=== PATIENT | female | born 1945 | race Caucasian/White ===

== ENCOUNTER → 2019-10-05 12:49 | Outpatient (CLI) | payer OTHER, SELFPAY ==
--- NOTE | 2019-10-05 | DI.MRI.S_ITS ---
PROCEDURE: MR KNEE RT WO CON INDICATIONS: Pain in right knee TECHNIQUE: Noncontrast sagittal PD fast spin echo and T2 fast spin echo with fat saturation, sagittal 3-D FLASH with fat saturation; coronal T1 spin echo and PD fast spin echo with fat saturation, and axial PD fast spin echo with fat saturation through the knee. COMPARISON: [facility] [place], CR, XR KNEE ARTHRITIC SERIES BI, 09/25/2019, 16:21. FINDINGS: Image quality: Excellent. Menisci: Ill-defined tear involving the anterior horn and body of the medial meniscus with partial extrusion. Circumferential macerated tear of lateral meniscus with near complete extrusion of the body. Cruciate ligaments: Anterior cruciate ligament not well visualized although some intact fibers are noted for example image 25/8. This suggests indeterminate partial rupture/chronic sprain Posterior cruciate ligament appears intact. Medial structures: There is medial bowing of the medial collateral ligament, with mild internal signal changes and no complete rupture. There is adjacent soft tissue edema. The appearance could reflect reactive changes to medial compartment pathology, versus low-grade sprain of the MCL. Pes anserinus tendons appear grossly unremarkable. Semimembranosus tendon appears intact. Lateral structures: The lateral collateral ligament demonstrates thickening and intrasubstance signal change in keeping with low grade sprain, statistically chronic, although technically age indeterminate. Biceps femoris tendon appears intact. Popliteus tendon grossly unremarkable. Iliotibial band appears intact. Anterior structures: Quadriceps tendon intact. Medial and lateral patellofemoral ligaments intact. There is mild patellar tendinopathy. Prepatellar and superficial infrapatellar subcutaneous edema/fluid. There is also fluid seen in the deep infrapatellar recess Bones and cartilage: No focal marrow contusion or discrete low signal fracture line. Within the medial compartment, the diffuse partial-thickness loss and surface rendering, as well as intrasubstance signal change involving the tibial and femoral cartilage. Within the lateral compartment, full-thickness denudation of the femoral and tibial articular cartilage Within the patellofemoral compartment, diffuse near full-thickness loss of the patellar cartilage. There is also diffuse surface fraying and partial-thickness loss of the femoral trochlea cartilage Joint space: Large joint effusion is present. Trace Swan's cyst. Possible 4 mm loose body on image 96/10, image 18/9 although technically indeterminate. There is diffuse presumed reactive synovitis IMPRESSION: Circumferential macerated tear lateral meniscus Ill-defined medial meniscal tear involving the anterior horn and body Probably chronic low-grade sprain/partial rupture of the anterior cruciate ligament Severe degenerative joint disease most pronounced in the lateral and patellofemoral compartments as above Large joint effusion, with diffuse reactive synovitis Possible small loose body as above Trace Swan's cyst Patellar tendinopathy Dictated by: Geovani Gomez M.D. on 10/07/2019 at 8:28 Approved by: Geovani Gomez M.D. on 10/07/2019 at 8:36
== END ==
PROVIDERS: Visit Provider Orthopaedic Surgery
DX: M25.561 Pain in right knee (principal); S83.281A Other tear of lateral meniscus, current injury, right knee, initial encounter; S83.241A Other tear of medial meniscus, current injury, right knee, initial encounter; M17.11 Unilateral primary osteoarthritis, right knee; M65.861 Other synovitis and tenosynovitis, right lower leg; M25.461 Effusion, right knee
CPT/HCPCS: 73721

== ENCOUNTER 2019-12-03 10:49 | Day surgery (SDC) | payer OTHER, SELFPAY ==
[2019-11-25 12:29] VITALS: BMI 33.1
[2019-12-03] VITALS (10 sets, daily range): BP systolic 117–144; BP diastolic 63–86; PULSE 47–68; RESP 12–19; TEMP 36.2–37.2; O2SAT 93–98; BMI 33.3
--- NOTE | 2019-12-03 06:00 | DI.RAD.S_ITS ---
PROCEDURE: XR KNEE RT 1TO2V INDICATIONS: post op TECHNIQUE: 2 view(s) of the knee acquired. COMPARISON: None. FINDINGS: Bones: Patient is status post knee joint arthroplasty. Hardware components are in expected positions. Visualized bony structures are intact. Soft tissues: Overlying postoperative changes are noted. IMPRESSION: Normal alignment after right total knee arthroplasty. Dictated by: Amari Cisneros M.D. on 12/04/2019 at 11:57 Approved by: Amari Cisneros M.D. on 12/04/2019 at 11:57
[2019-12-03] MEDS: PREGABALIN 75 MG CAPSULE PO (12:02)
[2019-12-03] MEDS: ACETAMINOPHEN 325 MG TABLET 975 MG PO (12:02)
[2019-12-03] MEDS: CELECOXIB 200 MG CAPSULE PO (12:02)
[2019-12-03] MEDS: VANCOMYCIN 1,000 MG/200 ML PIGGYBACK 200 MG IV (14:01)
[2019-12-03] MEDS: LACTATED RINGERS 1,000 ML 120 ML IV ×2 (14:20→16:42)
--- NOTE | 2019-12-03 14:24 | PM.PREOP ---
Pre-operative Note Interval Note History & Physical reviewed/Exam performed by Physician: Yes Changes to H&P: No
--- NOTE | 2019-12-03 14:24 | PM.OP.1 ---
Operative Date/Time/Diagnoses Date of procedure: 12/03/19 Time of procedure: 14:56 Pre-op diagnosis: Right knee OA Post-op diagnosis: same Procedure & Clinicians Procedure: Right total knee arthroplasty Same procedure as scheduled: Yes Indications: The patient has had progressively worsening right knee pain with radiographic changes consistent with arthritis. Non-operative management has failed and the patient has requested total knee replacement. The risks, benefits and alternatives to surgery were discussed with the patient prior to proceeding. Risks discussed included, but were not limited to, failure to relieve pain, stiffness, infection, nerve damage, deep venous thrombosis, pulmonary embolism, stroke, coma, heart attack, permanent paralysis and , as well as the potential need for eventual revision of the prosthetic. Surgeon: Enid Briceño Lace Pinner: Marija Combs Anesthesia Type: Spinal Operative Notes Findings: Severe right knee osteoarthritis the tight lateral compartment, good stability acceptable alignment, soft bone Closure Type: primary Specimen(s): none sent Prosthetic devices, grafts, tissues, transplants, or devices: Briceño and Nephew Journey BCS 2 size 4 femur, size 4 tibia, +9 poly, 35 by 7.5 mm patella Applied: drain(s) Estimated Blood Loss (mL): 250 Blood products transfused: none Tourniquet time (min): 93 Procedure in detail: The patient was seen in the pre-operative area, where the patient identified the right knee as the operative site and this was marked with my initials. The patient received pre-operative antibiotics, and was taken to the operating room and placed on the operative table in the supine position. After satisfactory anesthesia, a multimedia instructional designer out? was performed. The right leg was encircled with a tourniquet about the proximal thigh, and the leg was prepared from the toes to the tourniquet with ChloroPrep in the usual fashion and draped through sterile drapes. The leg was elevated and exsanguinated with Eschmark bandage and the tourniquet inflated to [250] mmHg pressure. The knee was approached through an approximately 18 cm incision centered over the patella and carried into the knee through a medial parapatellar arthrotomy. Portion of the medial and lateral meniscus was resected. Soft tissue was carefully mobilized around the patella the patella was measured with a caliper. Bone was resected from the patella and the patellar height was reconstituted with up an appropriate sized patellar component. For a cover was then placed on the patella. A small amount of additional medial and lateral meniscus was resected. The visionary guide fit well to the distal femur. It looked like an appropriate distal femoral cut and the cut was made without difficulty. The rotation was assessed and the appropriate size femoral guide was placed on the distal femur and finishing cuts were made. There is no evidence of notching. The anterior, posterior and chamfer cuts were then made. The posterior osteophytes and soft tissues were then removed. The posterior capsule was injected with part of a mixture of 60 ml 0.25% Marcaine mixed with 20 ml Exparel for post operative pain control. The remainder of this mixture was injected into the capsule and subcutaneous tissues during cement curing. The tibia was prepared and the visionaire guide fit well to the distal tibia. The rotation was assessed. The patient was placed in extension residual medial and lateral meniscus as well as any residual bone was carefully resected. 2 mm additional tibia was resected. Hemostasis was achieved especially posteriorly. Additional local was injected into the posterior capsule. The extension gap was assessed and additional releases for gap balancing were performed as necessary. It was checked with the gap marking machine tender. The femoral component was trial was placed and the notch was finished. Trial tibial and femoral components were then placed and the knee placed through a range of motion. Range of motion was [0-130], with good stability throughout the range. The trials were then removed, and the tibia was finished. The bone was prepared with pulsatile lavage, and dried with a sponge. Cement was applied and the final prosthetics placed. Excess cement was removed during and after cement curing. A brief Betadine soak was performed. After confirming there was no extruded cement posteriorly, the final tibial insert was placed. The knee was copiously irrigated and the tourniquet deflated. Hemostasis was obtained with the Bovie. A drain was placed and brought out superolaterally. The capsule was closed with interrupted Vicryl suture. The subcutaneous layer was closed with barbed sutures, and the skin with a running 3-0 V-Lock suture and Surgical glue. An Aquacel Ag dressing was applied and the patient was taken to recovery having tolerated the procedure well. Complications: none Post-operative Condition: stable Disposition: Acute Care Plan for aftercare: The patient will be maintained on a standard total knee replacement protocol with weight bearing as tolerated. The patient will receive aspirin and sequential compression devices for DVT prophylaxis. The patient will be discharged home when safe for the home environment.
[2019-12-03] MEDS: CEFAZOLIN 2 GM/100 ML FROZ.PIGGY IV (14:58)
[2019-12-03] MEDS: TRANEXAMIC ACID 1,000 MG VIAL 1000 MG INJ ×2 (15:15→16:58)
--- NOTE | 2019-12-03 15:33 | SUR.OPER ---
Supine on padded OR bed. Pillow under head, arms secured on padded armboards <90 degree abduction. Safety belt across torso. Non-operative leg secured with tape over blanket over lower leg. Operative leg secured in DeMayo/Brendon positioner. Foam padded brace at thigh of operative leg.
[2019-12-03] MEDS: BUPIVACAINE 0.25% W/ EPI (PF) 10 ML VIAL 60 ML INJ (15:43)
[2019-12-03] MEDS: SODIUM CHLORIDE IRRIG SOLUTION 250 ML, POVIDONE-IODINE SPONGE STICKS 1 APPLIC IRR ×2 (15:43→16:02)
[2019-12-03] MEDS: BUPIVACAINE LIPOSOME 266 MG/20 ML VIAL INJ (15:43)
--- NOTE | 2019-12-03 16:43 | SUR.OPER ---
Pt. has psoriasis on her back, buttocks, abdomen; red dry scaly patches observed during positioning and prep. One spot noticed on operative site - right knee.
--- NOTE | 2019-12-03 18:04 | SUR.PHASEII ---
Patient A/O x 4. SAUCEDO'S x 4. Denies pain & nausea.
[2019-12-03] MEDS: LACTATED RINGERS 1,000 ML 125 ML IV (20:19)
[2019-12-03] MEDS: ACETAMINOPHEN 325 MG TABLET 650 MG PO (20:23)
[2019-12-03] MEDS: ASPIRIN EC 81 MG TABLET PO (20:24)
[2019-12-03] MEDS: IBUPROFEN 400 MG TABLET PO (20:25)
--- NOTE | 2019-12-03 23:36 | PC.NURSE ---
Post-op note: Cristhian was brought to rm 216 at 1830, awake, oriented x 3 and situation. Denied pain, reporting legs numb, able to wiggle toes, ankle wave & feel nurse hand on feet & legs. Rates some sensation and rated R knee pain at 1 or 2, scheduled tylenol & ibuprofen given as ordered. Pedal pulses are strong, SCD's on bilaterally. Aquacel & mckay wrap drsgs are CDI, hemovac came clamped. At 1930 I unclamped drain (per AIRCRAFT WORKER's order) drain is active w/sero-sang drainage, disc compressed. VS remain stable. RA oxygen mid-to-high 90's with continuous pulse ox monitoring. Lungs clear throughout; deep breathing instructed. Tolerating regular diet. No void as of 2199, TERRA COTTA MASON in room to bladder scan, the highest amt was 30 ml. Pt then voided 200 ml via bedpan. Fall precautions in place, alarm active for safety.
[2019-12-04] MEDS: CEFAZOLIN 2 GM/100 ML FROZ.PIGGY IV ×2 (00:16→06:27)
[2019-12-04] MEDS: IBUPROFEN 400 MG TABLET PO ×3 (00:53→09:57)
[2019-12-04 01:30] VITALS: BP 137/61; PULSE 71; RESP 16; TEMP 36.8; O2SAT 95
[2019-12-04] MEDS: LACTATED RINGERS 1,000 ML 125 ML IV (04:50)
[2019-12-04] MEDS: LEVOTHYROXINE 75 MCG TABLET PO (04:51)
[2019-12-04 05:01] VITALS: BP 122/62; PULSE 67; RESP 16; TEMP 37.1; O2SAT 95
[2019-12-04 07:19] LABS: Hemoglobin 12.2 g/dL (12.0-16.0)
[2019-12-04 07:30] VITALS: BP 136/74; PULSE 58; RESP 16; TEMP 36.8; O2SAT 96
--- NOTE | 2019-12-04 07:56 | PM.PN.1 ---
Subjective Subjective Date Patient Seen: 12/04/19 Time Patient Seen: 07:56 Interval history: Patient is POD# 1 s/p left TKA. Pain is mild and well controlled with Tylenol and Ibuprofen. She has mobilized about the room but is pending PT. Voiding appropriately. She denies any chest pain, shortness of breath, nausea or vomiting. Exam Vital Signs (past 8 hours): - 12/04/19 01:30 12/04/19 05:01 Temperature 98.3 F 98.7 F Pulse Rate 71 67 Respiratory Rate 16 16 Blood Pressure 137/61 122/62 Pulse Oximetry 95 95 Oxygen Delivery Method Room Air Oxygen Flow Rate 0 Narrative Exam Narrative: Pleasant 74 year old female resting in bed, alert and oriented in no acute distress. Aquacel is CDI. Patient able to flex and extend the hip and ankle. Calves soft and compressible. Objective Labs Result Diagrams: 12/04/19 06:55 Labs: Laboratory Results - last 24 hr 12/04/19 06:55 Hgb 12.2 Hct 36.0 Assessment & Plan Assessment & Plan narrative: Patient is progressing well postoperatively. Continue to mobilize, work with PT today. Discontinue hemovac drain prior to discharge. Discharge to home later today pending PT.
[2019-12-04] MEDS: ACETAMINOPHEN 325 MG TABLET 650 MG PO (09:55)
[2019-12-04] MEDS: CHOLECALCIFEROL (VITAMIN D3) 1,000 UNIT TABLET 2000 UNIT PO (09:56)
[2019-12-04] MEDS: ASPIRIN EC 81 MG TABLET PO (09:56)
[2019-12-04] MEDS: DOCUSATE 100 MG CAPSULE PO (09:56)
[2019-12-04] MEDS: hydroCHLOROthiazide 25 MG TABLET 12.5 MG PO (09:57)
--- NOTE | 2019-12-04 10:29 | CM.DANOTE ---
Patient is a 74 year old female who was admitted on 12/03/19 for RTKA. Pt has [facility] for insurance and her PCP is Dr. Estuardo Zamorano. EMR was reviewed. Per Ashwini CARDENAS and PA, pt medically stable to d/c home today after further PT. Per PT, recommending safe d/c home with friend assist and outpt PT and will work one more time with pt this afternoon prior to d/c. SW met bedside with pt and explained role and pt confirms that she lives alone in a condo in [place] and is independent with ADL's at baseline and drives. Pt denies any hx of HH or SNF and states her Dtr Daylin who lives in [place] is her DPOA. Pt denies any other local family but states she has a few close supportive friends who can assist at d/c and her friend Daylin, who lives in her condo complex below the pt, plans to provide transport this afternoon maybe around 1500 home and will stay the night with the pt for assist if needed. Pt states she would like to work with PT again after lunch prior to d/c as she had slight nausea after ambulation this morning with PT. Pt does not anticipate any SW needs at d/c and preference is home with friend this afternoon. Plan: SW to follow for likely pt d/c home this afternoon via friend Jennifer's POV and outpt PT. No SW needs at this time. MELISSA Patricio Discharge Planning/Care Management CM Discharge Assessment Start: 12/04/19 10:28 Freq: Status: Active Protocol: Document 12/04/19 10:28 (Rec: 12/04/19 10:29 [id number]) Discharge Planning Assessment Assigned Die Maker Bench Stamping NIKIA Garza DPBOBBI/Assigned Designee Name Dtr Daylin Perales Contact Information [phone] Advance Directives? Yes Advance Directives on File No History Provided By Patient,Medical Record Has Patient been admitted in last 30 No days? Prior Living Arrangements Apartment/Condo Household Members none Type of transporation used prior to Drives own vehicle admit Independent with ADL's Yes Is patient alert and oriented? Yes Caregiver for Another No Community Services used prior to Physical Therapy admission: Patient/Family Preference OP PT Therapy Barriers to Discharge No Discharge Plan Home Community Services Physical Therapy Transportation Arrangement Friend Jennifer to provide transport home and stay with pt overnight Referrals Initiated None needed Whiteboard Updated in Patient Room with Yes name and ext. # of Die Maker Bench Stamping Review Status In Process Please Provide Date Initial DC 12/04/19 Assessment Was Performed Next Review Type Continued Stay Review Pre-Anesthesia Assessment Start: 11/25/19 12:29 Freq: Status: Active Protocol: Document 11/25/19 12:29 CAB (Rec: 11/25/19 13:32 CAB [id number]) Pre-Anesthesia Assessment PAC Comment Retired pharmacist Preferred Name Juanita Patient Information Reviewed Via Phone Assessment Assessment Completed With Patient Comment Labs/EKG done per pt, surgeon has them-not available at time of assess Primary Care Provider Estuardo Good Seen Specialist in Last 12 Months Yes Specialist Seen Opthamologist/Skip Load Driver, Orthopedist Primary Language Senegalese Data Center Manager Required No Height 160.02 cm Weight 84.822 kg Body Mass Index (BMI) 33.1 Hearing Ability Normal Visual Assist Glasses Dentition Type Teeth, Natural Present,Teeth, Missing Barriers to Learning None Hx Anesthesia Reactions Yes: Hard time of coming to, very nausea, dizziness for almost a week 1972 Hx Family Anesthesia Reaction No Hx Malignant Hyperthermia No Hx Blood Transfusions No Anesthesia Review Requested No alcohol intake never Smoking Status Never smoker Substance Use Type does not use Pain Present Pain Reported Musculoskeletal Symptoms Abnormal Gait,Difficulty Walking,Joint Pain,Muscle Cramps,Muscle Spasms,Muscle Weakness History of Falling (Recent or History of No ) Patient is completely paralyzed or No completely immobile Mental Status Oriented to own ability Is patient on oxygen? No Does patient have CAMPBELL/SOB No Hx Sleep Apnea No Currently Taking a Beta Mikaela No Can You Climb a Flight of Stairs Without Yes SOB Hx Chest Pain No Hx SOB No Hx Syncope or Dizziness No Anti-Coagulant Therapy No Has a County Treasurer No Cardiac Testing No Hx Pacemaker/ICD No Pacemaker Rep Required? No Cardiac Clearance Received Not Applicable Diet Type At Home Regular dysphagia No Urinary Catheter Present No Hx Urinary Self Catheterization No Diabetes No Patient No Lactating No Hx Drug Resistant Organism No Presence of External or Internal Medical Yes: Bilateral eye lens Devices Have you traveled outside the [facility] in the last 30 days? Marital Status / Lives With none Prior Living Arrangements Apartment/Condo Number of Floors (Floors) One Floor Support System Friend(s) Does the Patient Have Assistance After Yes Surgery Patient Discharge Plan Description Return Home Comment Pt advised next day length of stay per surgeon Feels Safe in Current Environment Yes Been Physically Hurt or Threatened By a No Person in Current Environment Do you have thoughts of harming yourself None or others? Are you currently considering suicide? No Do you have a plan to hurt yourself or No Plan others? Do You Have Any Spiritual Beliefs That No May Affect Your HC Choices? Do You Have Any Cultural Practices That No May Affect Your HC Choices? Comment Synagogue Who Can We Speak to About Patient's Care Family, friends Identifying Code for Release of Patient Declines to issue Information Health Care Proxy/Next of Kin Cheryl (daughter) Health Care Proxy Emergency Contact Name Jennifer (friend) Emergency Contact or [phone] Advance Directives? Yes Advance Directives on File No Requested Patient Bring Advanced Yes Directives DOS Power of Flight Coordinator Yes Power of Flight Coordinator Name Cheryl (daughter) Power of Flight Coordinator PAC Instructions Do not shave/clip surgical site,Durable medical equipment ,Medications to take/avoid, Nasal antibiotic,No ETOH/ petroleum product on skin DOS, Post-op transportation,Pre-op antibiotic,Sturdy shoes/ comfortable clothes,Do not bring valuables and remove jewelry
--- NOTE | 2019-12-04 10:49 | PT.IIE ---
Current Diagnoses Unilateral primary osteoarthritis, right knee (12/03/19) Surgery Performed Operation Date: 12/03/19 13:15 Actual Procedures p Total Knee Arthroplasty(Right) - Enid Briceño MD Surgical History (Last Updated 11/25/19 @ 13:16 by Jennifer Wilson RN) History of bilateral cataract extraction (Acute) History of colonoscopy (Acute) History of hysterectomy (Acute) Hx of arthroscopy of left knee (Acute) Medical History (Last Updated 11/25/19 @ 13:12 by Jennifer Wilson RN) Fragile skin (Acute) Gout (Acute ~10/2018) HTN (hypertension) (Acute) Hypothyroidism (Acute) Osteoarthritis (Acute) Psoriasis (Acute) Physical Therapy Inpatient Evaluation/Re-Eval M1 PT/OT-IP Prior Functional Status Start: 12/04/19 08:17 Freq: NEEDED Status: Active Protocol: Document 12/04/19 08:57 HH (Rec: 12/04/19 10:49 [email or web address]) Medical Review Prior Functional Status Medical History Reviewed Yes Diet/Fluid Consistency Regular Communication no deficits noted. able to make needs known Mobility and Gait independent for all mobility without using AD. Stated had difficulty to bend and straighten his R knee d/t pain , and primarily WB through his L LE for many years. She also has trouble getting up from low chair and climbing stairs with step to pattern Activities of Daily Living and IADL's independent with ADLs and IADLs without AD but increased time depends on her pain level. She is able to drive. Social History Household Members none Living Arrangements Apartment/Condo Number of Floors (Floors) One Floor Number of Stairs To Enter/Railing? no [employer] has elevator access from garage to condo. Home Environment High Toilet,Walk in Shower Home Equipment Front Wheel Walker,Straight Cane,Bedside Commode,Raised Toilet Seat w/Armrests,Shower Seat with Backrest Employment Status Retired Additional Social History Comment Pt lives alone in [facility] and has a good friend Jennifer / caodaism friends that could assist as needed anytime. Pt has childrens live in [place]/ [place] / [place] but she stated she doesnt believe she will need their help. Pt will partipate outpatient therapy at [facility]. M2 PT-IP Current Condition Start: 12/04/19 08:17 Freq: NEEDED Status: Active Protocol: Document 12/04/19 08:57 (Rec: 12/04/19 10:49 [email or web address]) Physical Therapy Current Condition Current Condition Evaluation Date 12/04/19 Treatment Diagnosis R TKA, difficulty in walking Onset Date 12/03/19 Weight Bearing Status Weight Bearing Status Weight Bear as Tolerated M3 PT-IP Subjective Start: 12/04/19 08:17 Freq: NEEDED Status: Active Protocol: Document 12/04/19 08:57 (Rec: 12/04/19 10:49 [email or web address]) Subjective Physical Therapy Visit Type Type Initial Evaluation Visit Start Time 08:57 Visit Stop Time 09:26 Total Visit Minutes 29 Number of LAVATORY ATTENDANT Visits 0 Physical Therapy Visit Comments Patient Comments I dont have any pain sitting up. Patient Goals to return home once she is medically ready. Therapy Pain Assessment Pain When Pain Assessed During Mobility Pain Present Pain Present Pain Reported Location Right Hip Intensity 3 Scale Used Numeric (1 - 10) Description Aching Pain Management Techniques Apply Cold,Timing of Activity with Medications M4 PT-IP Mobility and Gait Start: 12/04/19 08:17 Freq: NEEDED Status: Active Protocol: Document 12/04/19 08:57 HH (Rec: 12/04/19 10:49 [email or web address]) PT-Transfer Assessment Sit to and From Stand Sit to and from Stand Contact Guard Assistance,Use of Upper Extremities Equipment Transfer Assistive Device Gait Belt,Front Wheeled Walker Orthotic/Prosthetic Devices or Brace: No Transfers Transfer Destination Chair Transfer Technique Stand Step Pivot Transfer Ability Level of Assist Contact Guard Assistance,Use of Upper Extremities Comments Mobility Comments Pt was sitting up in chair upon PT arrival. Denied any discomfort or pain. BP at 136/ 70 HR 55. Pt agreed to mobilize with PT. Pt did 5mins of seated heel slide with towel underneath and was able to reach 90-95 degrees of knee flexion. She then completed sit to stand slowly by using staggered and UE pushed off from armrests. She practiced standing weight shift and R TKE with FWW for a minute. She then proceed to amb in hallway with FWW CGA. Pt initially amb with step to pattern and c/o nauseous after 30 ft and needed a standing rest break x 3 minutes but did not vomit. She cont to amb for another 40 ft then returned to room with improved step over pattern but slowly. Pt was able to facilitate heel toe pattern on RLE without much discomfort. She then returned to chair with safe transfer and staggered stance. Call light placed within reach and educated pt to practice seated heel slide. Gait Assessment Gait Gait Assistance Required: Contact Guard Assist Distance (Feet) 150 Able to Maintain Weight Bearing Status Yes During Gait Assistive Devices Assistive Device Gait Belt,Front Wheeled Walker Orthotic/Prosthetic Devices or Brace: No Gait Deviations General Gait Pattern Decreased Stride Length, Decreased Feet Clearance, Flexed Trunk,Step-to Gait Factors Limiting Gait Function Factors Limiting Gait Function Decreased Activity Tolerance, Decreased Strength,Limited Range of Motion,Pain,Poor Balance Comments Gait Comments see mobility comments Stair Climbing Assessment Comments Stair Climbing Comments did not assess d/t limited mobility PT-Balance Assessment Sitting Balance and Reactions Static Sitting Balance Ability Normal Dynamic Sitting Balance Ability Normal Standing Balance and Reactions Static Standing Balance Ability Normal Dynamic Standing Balance Ability Good Device Used FWW M5 PT-IP Objective Assessments Start: 12/04/19 08:17 Freq: NEEDED Status: Active Protocol: Document 12/04/19 08:57 (Rec: 12/04/19 10:49 [email or web address]) Orientation Orientation/Cognition Level of Alertness Alert Orientation Name,Age,Birthday,Month,Date, Year,Day of Week,Place, Situation Language Function Ability No Deficits Noted Safety Awareness Understands Safety Issues Memory Description No Deficits Noted Gross Range of Motion Upper Extremity ROM Assessment Within Functional Limits Lower Extremity ROM Assessment Right Impaired Impairments knee AROM 8- 90/95 degrees Strength Upper Extremity Strength Assessment Within Functional Limits Lower Extremity Strength Assessment Right Impaired Knee 3+/5 Sensation Assessment Sensation Gross Sensation WNL Light Touch Intact Proprioception (Position) Intact Muscle Tone Muscle Tone WNL Yes M6 PT-IP Treatment Start: 12/04/19 08:17 Freq: NEEDED Status: Active Protocol: Document 12/04/19 08:57 (Rec: 12/04/19 10:49 [email or web address]) Physical Therapy Treatment Exercises Exercises Ankle Pumps,Quad Sets,Heel Slides Education Education Provided Precautions,Weight Bearing Status,Post-Op Packet,Safety Other Treatments Other Treatment Performed Assisted pt to reverse her front wheels to place her wheels on the lateral side. M7 PT-IP Assessment and Plan Start: 12/04/19 08:17 Freq: NEEDED Status: Active Protocol: Document 12/04/19 08:57 (Rec: 12/04/19 10:49 [email or web address]) PT Summary Assessment and Plan Potential Rehabilitation Potential Excellent Status of Condition at Evaluation Stable Summary Impairments Pain,ROM,Strength,Balance,Bed Mobility,Transfers,Gait, Activity Tolerance Assessment Summary This is a low complexity evaluation for this 74 yo female POD 2 R TKA. PLOF: Pt lives alone with good mobility without using AD but did need increased time for sit to stand and stair climbing activities. CLOF: Pt was able to amb / transfer with CGA and FWW. Pt initially amb with step to gait slowly but able to progress to step over heel toe gait at the end. She did has an episode of feeling nauseous but subside after 3 mins. Since pt lives alone, pt will need 2nd treatment this afternoon to ensure her endurance and mobility are sufficient without discomfort prior to d/c home with friend' s Jennifer assistance, along with outpatient PT. Goals Bed Mobility Goal Standby Assistance Transfer Goal Standby Assistance,Front Wheeled Walker Gait Goal Standby Assistance,Front Wheel Walker Gait Distance 200 Days to Meet Goals 2 Frequency of Treatment Frequency Of Treatment Twice a Day Treatment Plan Physical Therapy Treatment Plan Bed Mobility Training,Transfer Training,Gait Training, Therapeutic Exercise,Balance Retraining,Post Op Education, Discharge Planning,Hot or Cold Pack,Neuromuscular Re-ed Other Recommendations and Next Treatment check VSS Focus gait training with step over and heel toe sit to stand with even weightbearing. Recommendations To Nursing Amount of Assist Needed Standby Assistance Discharge Recommendations PT Discharge Recommendations Home with Assistance, Outpatient PT Transportation Needs at Discharge Private Vehicle
--- NOTE | 2019-12-04 14:07 | PT.IPTN ---
Current Diagnoses Unilateral primary osteoarthritis, right knee (12/03/19) Surgery Performed Operation Date: 12/03/19 13:15 Actual Procedures p Total Knee Arthroplasty(Right) - Enid Briceño MD Physical Therapy Treatment Note M2 PT-IP Current Condition Start: 12/04/19 08:17 Freq: NEEDED Status: Active Protocol: Document 12/04/19 08:57 HH (Rec: 12/04/19 10:49 HH [email or web address]) Physical Therapy Current Condition Current Condition Evaluation Date 12/04/19 Treatment Diagnosis R TKA, difficulty in walking Onset Date 12/03/19 Weight Bearing Status Weight Bearing Status Weight Bear as Tolerated M3 PT-IP Subjective Start: 12/04/19 08:17 Freq: NEEDED Status: Active Protocol: Document 12/04/19 13:42 SP (Rec: 12/04/19 14:35 SP [email or web address]) Subjective Physical Therapy Visit Type Type Treatment Note Visit Start Time 13:42 Visit Stop Time 14:07 Total Visit Minutes 25 Number of FENCE SUPERVISOR Visits 1 Physical Therapy Visit Comments Patient Comments Pt willing to mobilize with PT . Patient Goals Return home with friends ( neighbors and yazidi members) for assistance as long as needed. Therapy Pain Assessment Pain When Pain Assessed During Mobility Pain Present Pain Present Pain Reported Location Right Hip Intensity 2 Scale Used lateral R knee where drain was , mild irritation Description Aching Pain Management Techniques Re-positioning,Timing of Activity with Medications M4 PT-IP Mobility and Gait Start: 12/04/19 08:17 Freq: NEEDED Status: Active Protocol: Document 12/04/19 13:42 SP (Rec: 12/04/19 14:35 SP [email or web address]) PT-Bed Mobility Assessment Supine to Sit Supine to Sit Standby Assistance Sit to Supine Sit to Supine Standby Assistance Scooting Scooting to Edge of Bed Independent Scooting Up and Down in Bed Independent PT-Transfer Assessment Sit to and From Stand Sit to and from Stand Standby Assistance,Use of Upper Extremities Equipment Transfer Assistive Device Gait Belt,Front Wheeled Walker Orthotic/Prosthetic Devices or Brace: No Transfers Transfer Destination Bed,Chair Transfer Technique ambulated using FWW Transfer Ability Level of Assist Independent,Standby Assistance ,Use of Upper Extremities Comments Mobility Comments Pt was up in chair when arrived. Pt compliant and demonstrated 90-95* R knee flexion heel slides in sitting doing approx every 1.5 hrs. Completed sit <> stand, SPT chair to bed with proper hand placement and FWW positioning. Pt demonstrated R LE out in front to stand and encouraged then demonstrated WB wt shift, march and heel raises in standing to prep gait with improvement with less UE WB onto walker. Mod I step pivot transfer chair to bed, reaching back to sit, sitting <> supine SBA- Mod I with ability to lift RLe into bed self with no UE assist and bridge center self usign LLE, supine>sitting Mod I. Pt was able to complete bathroom transfer after coming back from a walk SBA-Mod I, cued x1 for use of wall rail instead of FWW for slow descent with good stability. Pt was able to complete self hygiene and come to standing using rail as previously instructed follow through and walked to sink, good stable balance wtih FWW position in front for safety with no UE support needed then walk to chair wtih good slow descent usign BUE. Pt had call light and all needs in reach while sitting in chair when left. Pt requested bag of clothes to self dress. Recommended use of call light if needed for assistant chief nursing officer for assistance as needed and safety with verbal confirmation. Gait Assessment Gait Gait Assistance Required: Independent,Standby Assistance Distance (Feet) 262 Able to Maintain Weight Bearing Status Yes During Gait Assistive Devices Assistive Device Gait Belt,Front Wheeled Walker Orthotic/Prosthetic Devices or Brace: No Gait Deviations General Gait Pattern Decreased Stride Length, Decreased Feet Clearance, Flexed Trunk,Step-to Gait Factors Limiting Gait Function Factors Limiting Gait Function Decreased Activity Tolerance, Decreased Strength,Limited Range of Motion,Pain Comments Gait Comments Pt was able to increase distance during ambulation using FWW sBA- Mod I, initially step to gait then progressed step over step. Encouraged to perform and demonstrated in hallway pre gait: heel raises, marching for improvement RLE WB. Improvement in step over step gait as distance progressed into hallway approx 262 ft and short distance in room 5ft, 10 ft, 15 ft. Stair Climbing Assessment Comments Stair Climbing Comments No stairs at home, did not assess. PT-Balance Assessment Sitting Balance and Reactions Static Sitting Balance Ability Normal Dynamic Sitting Balance Ability Normal Standing Balance and Reactions Static Standing Balance Ability Normal Dynamic Standing Balance Ability Good Device Used FWW M5 PT-IP Objective Assessments Start: 12/04/19 08:17 Freq: NEEDED Status: Active Protocol: Document 12/04/19 08:57 HH (Rec: 12/04/19 10:49 HH [email or web address]) Orientation Orientation/Cognition Level of Alertness Alert Orientation Name,Age,Birthday,Month,Date, Year,Day of Week,Place, Situation Language Function Ability No Deficits Noted Safety Awareness Understands Safety Issues Memory Description No Deficits Noted Gross Range of Motion Upper Extremity ROM Assessment Within Functional Limits Lower Extremity ROM Assessment Right Impaired Impairments knee AROM 8- 90/95 degrees Strength Upper Extremity Strength Assessment Within Functional Limits Lower Extremity Strength Assessment Right Impaired Knee 3+/5 Sensation Assessment Sensation Gross Sensation WNL Light Touch Intact Proprioception (Position) Intact Muscle Tone Muscle Tone WNL Yes M6 PT-IP Treatment Start: 12/04/19 08:17 Freq: NEEDED Status: Active Protocol: Document 12/04/19 13:42 SP (Rec: 12/04/19 14:35 SP [email or web address]) Physical Therapy Treatment Exercises Exercises Ankle Pumps,Quad Sets,Heel Slides Education Education Provided Precautions,Weight Bearing Status,Post-Op Packet,Safety Other Treatments Other Treatment Performed Standing using FWW: wt shifting, heel raises, marching pregait to improve RLE WB. M7 PT-IP Assessment and Plan Start: 12/04/19 08:17 Freq: NEEDED Status: Active Protocol: Document 12/04/19 13:42 SP (Rec: 12/04/19 14:35 SP [email or web address]) PT Summary Assessment and Plan Potential Rehabilitation Potential Excellent Status of Condition at Evaluation Stable Summary Impairments Pain,ROM,Strength,Balance,Bed Mobility,Transfers,Gait, Activity Tolerance Assessment Summary PLOF: Pt lives alone with good mobility without using AD but did need increased time for sit to stand and stair climbing activities. CLOF: Pt was able to amb / transfer sBA- Mod I using FWW wtih good safety transfer techniques. Pt initially amb with step to gait slowly but able to progress to step over heel toe gait at the end. She did mention slight nausea but no bag needed. Since pt lives alone and demonstrated good balance, safety and gait/ transfer/bed mobilitty SBA- Mod I and stated has [place]bors and yazidi member/ friends to stay with her at home for assistance as long as needed for safety DC home. Recommending home with assist and outpatient PT when medically stable. Goals Bed Mobility Goal Standby Assistance Transfer Goal Standby Assistance,Front Wheeled Walker Gait Goal Standby Assistance,Front Wheel Walker Gait Distance 200 Days to Meet Goals 2 Frequency of Treatment Frequency Of Treatment Twice a Day Treatment Plan Physical Therapy Treatment Plan Bed Mobility Training,Transfer Training,Gait Training, Therapeutic Exercise,Balance Retraining,Post Op Education, Discharge Planning,Hot or Cold Pack,Neuromuscular Re-ed Recommendations To Nursing Amount of Assist Needed Standby Assistance Discharge Recommendations PT Discharge Recommendations Home with Assistance, Outpatient PT Transportation Needs at Discharge Private Vehicle
== END 2019-12-04 15:00 | disposition home or self-care (01) ==
LOC: OR 10:53 → AC 10:53
PROVIDERS: PCP Family Medicine; Referring Provider Family Medicine; Visit Provider Orthopaedic Surgery
PROC: 0SRC0JZ Replacement of Right Knee Joint with Synthetic Substitute, Open Approach (ICD-10-PCS; CPT 27447; principal; 2019-12-03 13:15)
DX: M17.11 Unilateral primary osteoarthritis, right knee (principal)
CPT/HCPCS: 27447; 36415; 73560; 85014; 85018; 97110; 97116; 97161; 97530; C1776; C9290; J0690